=== PATIENT | male | born 1985 | race Caucasian/White ===

== ENCOUNTER 2018-12-11 20:58 | Emergency (ER) | payer OTHER ==
[~2018-12-11] VITALS: Ht 190 cm; Wt 87.0 kg
--- NOTE | 2018-12-11 21:40 | ED Upper Extremity ---
General Chief Complaint: Trauma-Non Activation Stated Complaint: RT ELBOW INJURY/FELL OUT OF A CHAIR Nursing Triage Note: Pt ambulates to [facility] with c/o right arm pain after falling out of a chair. Pt states he fell out arm first then landed on his back. Pt denies hitting head. Nursing Sepsis Screen: No Definite Risk History of Present Illness Date Seen by Provider: Dec 11, 2018 Time Seen by Provider: 21:25 Initial Comments 33-year-old male reports falling out of a chair and landing on his right arm. He has the main complaint of right elbow pain. He had immediate onset of swelling in the right elbow and pain radiating into his right hand. His right arm dominant. He has not taken in the analgesia prior to arrival. No history of injuries to the right upper extremity. Onset: just prior to arrival Pain/Injury Location: right elbow Method of Injury: fell Modifying Factors: Improves With Rest Allergies and Home Medications Allergies Coded Allergies: No Known Drug Allergies (Unverified , 12/11/18) Patient Home Medication List Home Medication List Reviewed: Yes Review of Systems Constitutional: no symptoms reported, see HPI Musculoskeletal: see HPI, joint pain (right elbow), muscle pain (and right forearm) All Other Systems Reviewed Negative Unless Noted: Yes Past Pesfuyj-Rbompa-Xtfdjz Hx Past Med/Social Hx: Reviewed Nursing Past Med/Soc Hx Patient Social History Alcohol Use: Denies Use Recreational Drug Use: Yes Smoking Status: Current Everyday Smoker Type Used: Cigarettes 2nd Hand Smoke Exposure: Yes Recent Foreign Travel: No Contact w/Someone Who Travel: No Recent Infectious Disease Expo: No Recent Hopitalizations: Yes Physical Abuse: No Sexual Abuse: No Mistreated: No Fear: No Seasonal Allergies Seasonal Allergies: No Past Medical History Surgeries: No Respiratory: No Cardiac: No Neurological: No Genitourinary: No Gastrointestinal: No Musculoskeletal: No Endocrine: No HEENT: No Cancer: No Psychosocial: No Integumentary: No Blood Disorders: No Physical Exam Vital Signs Vital Signs - First Documented 12/11/18 21:15 Temp 36.8 Pulse 70 Resp 18 B/P (MAP) 139/77 (97) Pulse Ox 98 O2 Delivery Room Air Capillary Refill : Less Than 3 Seconds Height, Weight, BMI Height: '" Weight: lbs. oz. kg; 24.00 BMI Method: General Appearance: WD/WN, no apparent distress Neck: non-tender, full range of motion, supple, normal inspection Cardiovascular: normal peripheral pulses, regular rate, rhythm, no murmur Respiratory: chest non-tender, lungs clear, normal breath sounds Elbow/Forearm: Right, bone tenderness, limited ROM, pain, soft tissue tenderness, swelling Wrist: Yes normal inspection, Yes non-tender, Yes no evidence of injury, Yes normal ROM Hand: normal inspection, non-tender, no evidence of injury, normal ROM, Right Neurologic/Psychiatric: no motor/sensory deficits, alert, normal mood/affect, oriented x 3 Skin: normal color, warm/dry Progress/Results/Core Measures Results/Orders My Orders Orders - RUSTAM NICOLAS Elbow, Right, 3 Views (12/11/18 21:26) Vital Signs/I&O 12/11/18 21:15 Temp 36.8 Pulse 70 Resp 18 B/P (MAP) 139/77 (97) Pulse Ox 98 O2 Delivery Room Air Blood Pressure Mean: 97 Diagnostic Imaging Diagonstic Imaging: Xray Plain Films/CT/US/NM/MRI: elbow Comments NAME: LIZ MISHRA [facility] REC#: [id number] PT STATUS: REG ER : 1985 PHYSICIAN: RUSTAM NICOLAS ADMIT DATE: 12/11/18/ER Draft Date of Exam:12/11/18 ELBOW, RIGHT, 3 VIEWS Clinical indication: Patient fell backwards in chair and landed on right elbow. Patient has pain in the posterior and inferior right elbow. Exam: X-ray of the right elbow, 3 views. Comparison: None. Findings: There is no acute fracture or dislocation. There is no elbow effusion. There is small spurs involving the posterior aspect of the olecranon process. 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 Dictated on workstation # [id number] Dict: 12/11/182143 Trans: 12/11/182146 [facility] [id number] Interpreted by: ABBY ONEILL MD Electronically signed by: Departure Impression Primary Impression: Contusion of right elbow Qualified Codes: S50.01XA - Contusion of right elbow, initial encounter Disposition: HOME, SELF-CARE Condition: Improved Departure-Patient Inst. Decision time for Depature: 22:00 Referrals: MARCOS PANG DO (PCP/Family) Primary Care Physician Patient Instructions: Contusion (DC) Add. Discharge Instructions: Sling as needed for right arm, remove every hour and gentle ROM to elbow. Ice to right elbow 20 min every 2 hours, while awake. Alternate between Tylenol 650 mg and ibuprofen 600 mg every 4 hours for pain. Follow-up with your primary care provider if symptoms are not improving or worsen over the next 2-3 days. Return to the emergency department for new, urgent health care needs. All discharge instructions reviewed with patient and/or family. Voiced understanding. RUSTAM NICOLAS Dec 11, 2018 21:40
--- NOTE | 2018-12-11 21:47 | Diagnostic Imaging Report ---
Clinical indication: Patient fell backwards in chair and landed on right elbow. Patient has pain in the posterior and inferior right elbow. Exam: X-ray of the right elbow, 3 views. Comparison: None. Findings: There is no acute fracture or dislocation. There is no elbow effusion. There is small spurs involving the posterior aspect of the olecranon process. 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 Dictated by: Dictated on workstation # [id number]
[2018-12-11 22:06] VITALS: BP 139/77
== END 2018-12-11 22:06 | disposition home or self-care (01) ==
LOC: ER 21:01
DX: S50.01XA Contusion of right elbow, initial encounter (principal); F17.210 Nicotine dependence, cigarettes, uncomplicated; W07.XXXA Fall from chair, initial encounter
CPT/HCPCS: 73080

== ENCOUNTER 2021-08-22 21:25 | Emergency (ER) | payer OTHER ==
[~2021-08-22] VITALS: Ht 187.9 cm; Wt 87.9 kg
[2021-08-22 21:35] VITALS: BP 133/88
[2021-08-22] MEDS ORDERED: TETRACAINE 0.5% OPHTH SOLN 4 ML BTL (SINGLE DOSE ONLY) OP ONE (21:45)
[2021-08-22] MEDS ORDERED: FLUORESCEIN (FLUOR-I-STRIPS) 1 MG STRP OP ONE (21:45)
--- NOTE | 2021-08-22 22:00 | ED EENT ---
History of Present Illness General Chief Complaint: Eye Problems Stated Complaint: FB IN LEFT EYE Nursing Triage Note: pt ambulatory to room. pt states he was building something this morning, had sunglasses on, and a shaving of wood went into his eye. pt states he felt fine most of the day, but the pain in his left eye became intolerable in the last couple of hours. pt states his eyes and sinuses won't stop running Source: patient Exam Limitations: no limitations History of Present Illness Date Seen by Provider: Aug 22, 2021 Time Seen by Provider: 22:35 Initial Comments Patient is a 35-year-old male who presents ED with left eye pain with redness and drainage. Symptoms started today around 1030 when he was working with wood trusses when a small piece of wood went in between his glasses and his left eye. Patient noticed some discomfort initially after the injury. Started having worsening pain 2 hours afterwards. It feels like something is stuck in his eye and occurs with closing his eyelid or movement. flushed with water at home. Noted redness and drainage. Denies of any visual loss, blurry vision. Denies contact use. Patient is up-to-date on his tetanus Allergies and Home Medications Allergies Coded Allergies: No Known Drug Allergies (Unverified , 12/11/18) Patient Home Medication List Home Medication List Reviewed: Yes Review of Systems Review of Systems Constitutional: No chills, No diaphoresis, No malaise, No weakness Eyes: Denies Blurred Vision, Denies Drainage, Denies Decreased Acuity; Inflammation, Pain; Denies Previous Injury Ears: Denies Dizziness, Denies Bloody Discharge, Denies Clear Discharge Nose: denies clots, denies congestion Mouth: denies loose teeth, denies bloody discharge, denies previous injury Throat: denies pain, denies swelling Respiratory: No cough, No dyspnea on exertion Cardiovascular: No chest pain, No edema Gastrointestinal: No abdominal pain, No diarrhea, No nausea, No vomiting Musculoskeletal: No back pain, No joint pain Skin: No change in color, No change in hair/nails All Other Systems Reviewed Negative Unless Noted: Yes Past Xwvllsn-Uiwhvq-Fpkuph Hx Patient Social History Tobacco Use?: Yes Tobacco type used: Cigarettes Smoking Status: Current Everyday Smoker Use of E-Cig and/or Vaping dev: No Substance use?: No Alcohol Use?: No Pt feels they are or have been: No Immunizations Up To Date Influenza Vaccine Up-to-Date: No; Not Current Seasonal Allergies Seasonal Allergies: No Past Medical History Surgeries: No Respiratory: No Cardiac: No Neurological: No Genitourinary: No Gastrointestinal: No Musculoskeletal: No Endocrine: No HEENT: No Cancer: No Psychosocial: No Integumentary: No Blood Disorders: No Physical Exam Vital Signs Vital Signs - First Documented 08/22/21 21:35 Temp 36.5 Pulse 74 Resp 16 B/P (MAP) 133/88 (103) Pulse Ox 100 Height, Weight, BMI Height: '" Weight: lbs. oz. kg; 24.00 BMI Method: General Appearance: WD/WN, no apparent distress Eyes: left eye conjunctival inflammation, left eye corneal abrasion; bilateral eye PERRL, bilateral eye EOMI Ears: bilateral ear auricle normal, bilateral ear canal normal, bilateral ear TM normal Nose: normal inspection Mouth/Throat: normal mouth inspection, pharynx normal Neck: non-tender, full range of motion, supple, normal inspection Cardiovascular: regular rate, rhythm, no edema, no gallop, no JVD Respiratory: chest non-tender, lungs clear, normal breath sounds, no respiratory distress, no accessory muscle use Gastrointestinal: normal bowel sounds, non tender, soft, no organomegaly 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 ONCE ONCE OP 08/22/21 21:45 08/22/21 21:46 DC 08/22/21 22:00 1 ML Vital Signs/I&O 08/22/21 21:35 Temp 36.5 Pulse 74 Resp 16 B/P (MAP) 133/88 (103) Pulse Ox 100 Blood Pressure Mean: 103 Departure Communication (PCP) Patient has a corneal abrasion to the left eye. Pupils reactive light. Extraocular was intact. Negative Evangelista sign. No obvious foreign body. Tetracaine was used to help with pain of the left eye. Patient was given dose of Polytrim. Denies contacts. Recommend follow up with [facility] eye care in the next 2 to 3 days for further evaluation and a more thorough exam. Will discharge with the Polytrim. Irrigation with normal saline here in the ED. No evidence of lid swelling or erythema. Return precaution were discussed such as visual loss, increased redness or swelling of the left eye. Patient is up-to-date on his tetanus Impression Primary Impression: Corneal abrasion Disposition: HOME, SELF-CARE Condition: Stable Departure-Patient Inst. Decision time for Depature: 22:00 Referrals: MARCOS PANG DO (PCP/Family) Primary Care Physician Patient Instructions: Corneal Abrasion (DC) Add. Discharge Instructions: Recommend following up with [facility] next week for further evaluation. [id number] Take Polytrim 2 drops every 6 hours for 7 days. All discharge instructions reviewed with patient and/or family. Voiced understanding. SUMMER LEON Aug 22, 2021 22:00
[2021-08-23] MEDS ORDERED: POLY/TRIMETH (POLYTRIM) OPHTH 10 ML BTL OU SCH
== END 2021-08-22 22:35 | disposition home or self-care (01) ==
LOC: EDUNIT# 21:25 → ER 21:27
DX: S05.02XA Injury of conjunctiva and corneal abrasion without foreign body, left eye, initial encounter (principal); F17.210 Nicotine dependence, cigarettes, uncomplicated; W20.8XXA Other cause of strike by thrown, projected or falling object, initial encounter; Y93.D3 Activity, furniture building and finishing
CPT/HCPCS: 99282